=== PATIENT | female | born 1970 | race Caucasian/White ===

== ENCOUNTER 2020-03-23 13:41 | Emergency (ER) | payer BC ==
[~2020-03-23 13:41] MED LIST: ACET-78 PO; ALBU17AE23 IH; APAP; BENZ100C18; BUDE6HFA; HCT25T; IBUP-1773 PO; LEVO50TA6 PO; LOSA50TA63 PO; METO50TA7; MONT10TA21 PO; OXC5T PO; POTA10CA43 PO; PRD20T; TRIA1CAP4 PO; [UNRECOGNIZED DRUG - OTHER]
--- NOTE | 2020-03-23 14:05 | NUR ---
REGISTRATION REPORTS PT HAS LEFT.
== END 2020-03-23 14:05 | disposition left against medical advice (07) ==
LOC: EDUNIT# 13:41 → MERGE 13:53 → ER 13:53
DX: R06.02 Shortness of breath (principal); R53.83 Other fatigue

== ENCOUNTER → 2020-07-12 | Outpatient (CLI) | payer BC ==
--- NOTE | 2020-07-12 13:26 | Diagnostic Imaging Report ---
EXAMINATION: Chest 2 views. HISTORY: Follow-up Covid 19 infection. COMPARISON: 07/27/2011. FINDINGS: The lung volumes are normal. Small amount of patchy opacities are seen in the left lung base. No large pleural effusion or pneumothorax is seen. The cardiomediastinal silhouette is normal in size and contour. No acute osseous abnormality is seen. IMPRESSION: 1. Small amount of patchy opacities in the left lung base, which may represent subsegmental atelectasis versus sequelae from the patient's history of Covid 19 infection. No lobar consolidations. No pleural effusions. Dictated by: Dictated on workstation # [id number]
== END ==
LOC: RAD 11:59
PROVIDERS: ATTEND Nurse Practitioner Family
DX: U07.1 COVID-19 (principal); J12.82 Pneumonia due to coronavirus disease 2019
CPT/HCPCS: 71046

== ENCOUNTER → 2021-09-23 | Outpatient (CLI) | payer BC ==
--- NOTE | 2021-09-23 11:00 | Diagnostic Imaging Report ---
INDICATION: Routine screening. COMPARISON: 10/04/2018 and 12/20/2016. TECHNIQUE: 2D and 3D bilateral screening mammography was performed with CAD. FINDINGS: Scattered fibroglandular densities are identified bilaterally. The overall parenchymal pattern appears stable. No dominant mass or malignant-appearing microcalcifications are seen. The axillae are unremarkable. IMPRESSION: No mammographic features suspicious for malignancy are identified. ACR BI-RADS Category 1: Negative. Result letter will be mailed to the patient. Note: At least 10% of breast cancer is not imaged by mammography. Dictated by: Dictated on workstation # [id number]
== END ==
LOC: RAD 07:45
PROVIDERS: ATTEND Obstetrics & Gynecology
DX: Z12.31 Encounter for screening mammogram for malignant neoplasm of breast (principal)
CPT/HCPCS: 77063; 77067

== ENCOUNTER → 2022-09-26 | Outpatient (CLI) | payer BC ==
[~2022-09-26] MED LIST changes: +POTA10CA44 PO; -TRIA1CAP4 PO; +TRIA1CAP84 PO
--- NOTE | 2022-09-26 15:48 | Diagnostic Imaging Report ---
EXAMINATION: 3D bilateral screening mammogram with CAD. INDICATION: Screening. COMPARISON: This study was compared to the prior exams of 09/23/2021 and 10/04/2018. PERSONAL HISTORY: At this time, there are no current complaints. FINDINGS: The breasts are predominantly fatty. When compared to the prior study, there has been no significant change. There is no primary or secondary sign of malignancy noted. IMPRESSION: There is no evidence for malignancy. ACR BI-RADS Category 1: Negative. Result letter will be mailed to the patient. Note: At least 10% of breast cancer is not imaged by mammography. Dictated by: Dictated on workstation # [id number]
== END ==
LOC: RAD 15:00
PROVIDERS: ATTEND Nurse Practitioner
DX: Z12.31 Encounter for screening mammogram for malignant neoplasm of breast (principal)
CPT/HCPCS: 77063; 77067